=== PATIENT | female | born 1950 | race American Indian/Alaskan Native ===

== ENCOUNTER 2019-01-14 10:36 | Inpatient (IN) | payer MEDICARE ==
[2019-01-14 10:36] VITALS: BMI 31.4
[2019-01-14 11:16] VITALS: RESP 20
[2019-01-14] MEDS ORDERED: Sodium Chloride 0.9% 1,000 ML IV ONE (11:36)
--- NOTE | 2019-01-14 11:39 | C.PDOC ---
History Of Present Illness 68 y/o female pt presents to the ER c/o right extremity swelling. Pt reports she woke up with swelling and pain on her right leg with erythema. Pain is constant and worse with movement, pt also notes chills. Pt denies fever, chills, weakness, numbness and no other associated sx or complaints at this time. Time Seen by Provider: 01/14/19 10:57 Chief Complaint (Nursing): Lower Extremity Problem/Injury History Per: Patient History/Exam Limitations: no limitations Onset/Duration Of Symptoms: Hrs Current Symptoms Are (Timing): Still Present Severity: Moderate Past Medical History Reviewed: Historical Data, Nursing Documentation, Vital Signs Vital Signs: Last Vital Signs Temp 102.8 F H 01/14/19 11:15 Pulse 88 01/14/19 11:15 Resp 20 01/14/19 11:15 BP 189/95 H 01/14/19 11:15 Pulse Ox 99 01/14/19 11:15 - Medical History PMH: Back Problems, Hepatitis, HTN, Kidney Stones Surgical History: No Surg Hx - [facility] Procedures LEFT HEART CARDIAC CATH (11/25/13) LT HEART ANGIOCARDIOGRAM (11/25/13) VACCINATION NEC (11/25/13) Family History: States: Unknown Family Hx - Social History Hx Tobacco Use: No Hx Alcohol Use: No Hx Substance Use: No - Immunization History Hx Tetanus Toxoid Vaccination: No Hx Influenza Vaccination: No Hx Pneumococcal Vaccination: No Review Of Systems Except As Marked, All Systems Reviewed And Found Negative. Constitutional: Positive for: Chills Musculoskeletal: Positive for: Other (right extremity swelling and pain ) Physical Exam - Physical Exam Appears: Non-toxic, No Acute Distress Skin: Warm, Dry Head: Normacephalic Eye(s): bilateral: Normal Inspection Chest: Symmetrical Cardiovascular: Rhythm Regular Respiratory: Normal Breath Sounds, No Rales, No Rhonchi, No Wheezing Gastrointestinal/Abdominal: Soft, No Tenderness Back: No CVA Tenderness Extremity: Normal ROM (x4), Pedal Edema (b/l 2+; R>L), No Calf Tenderness, No Deformity, Swelling, Other (erythema along the magallanes of right leg; +induration ) Pulses: Left Dorsalis Pedis: Normal, Right Dorsalis Pedis: Normal Neurological/Psych: Oriented x3, Normal Speech, Normal Cognition, Normal Motor, Normal Sensation ED Course And Treatment - Laboratory Results Result Diagrams: 01/14/19 12:26 01/14/19 12:26 O2 Sat by Pulse Oximetry: 99 (RA) Pulse Ox Interpretation: Normal Medical Decision Making Medical Decision Making: plans: -- chem labs -- blood work -- chest XR -- IV fluids -- tylenol Admit pt to Dr. Engle Disposition Discussed With : Pilar Engle Doctor Will See Patient In The: Hospital Counseled Patient/Family Regarding: Diagnosis - Disposition Disposition: HOSPITALIZED Disposition Time: 14:15 Condition: STABLE - Clinical Impression Clinical Impression: Erysipelas of lower extremity, Cellulitis, leg - Scribe Statement The provider has reviewed the documentation as recorded by the Juvencio Shoemaker Do Provider Attestation: All medical record entries made by the Juvencio were at my direction and personally dictated by me. I have reviewed the chart and agree that the record accurately reflects my personal performance of the history, physical exam, medical decision making, and the department course for this patient. I have also personally directed, reviewed, and agree with the discharge instructions and disposition.
[2019-01-14] MEDS ORDERED: Sodium Chloride 0.9% 1,000 ML ONE ×2 (11:49→15:26)
[2019-01-14 12:03] LABS: VENOUS BLOOD GAS BASE EXCESS 6.6 mmol/L (0.0-2.0); VENOUS BLOOD GAS PCO2 47 mmHg (40-60); VENOUS BLOOD GAS PO2 19 mm/Hg (30-55); VENOUS BLOOD PH 7.44 (7.32-7.43)
[2019-01-14 12:33] LABS: BASO % 0.3 % (0.0-2.0); EOS # 0.1 K/uL (0.0-0.7); EOS % 1.7 % (0.0-4.0); HEMOGLOBIN 13.9 g/dL (11.0-16.0); LYMPH # 1.6 K/uL (1.0-4.3); LYMPH % 19.1 % (20.0-40.0); MEAN CELL VOLUME 89.5 fL (81.0-99.0); MEAN CORPUSCULAR HEMOGLOBIN 29.9 pg (27.0-31.0); MEAN CORPUSCULAR HGB CONC 33.4 g/dL (33.0-37.0); MEAN PLATELET VOLUME 9.7 fL (7.2-11.7); MONO # 0.5 K/uL (0.0-0.8); MONO % 6.2 % (0.0-10.0); NEUT # 6.2 K/uL (1.8-7.0); NEUT % 72.7 % (50.0-75.0); NRBC % 0.1 % (0.0-2.0); RBC 4.66 Mil/uL (3.80-5.20); RED CELL DISTRIBUTION WIDTH 15.6 % (11.5-14.5); WHITE BLOOD COUNT 8.5 K/uL (4.8-10.8)
[2019-01-14 12:44] LABS: ALB/GLOB RATIO 0.8 (1.0-2.1); ALBUMIN 3.5 g/dL (3.5-5.0); CALCIUM 9.2 mg/dl (8.6-10.4)
--- NOTE | 2019-01-14 15:07 | RAD ---
Chest x-ray single frontal view HISTORY: Shortness of breath. COMPARISON: 04/02/2016 Findings: Moderate venous congestion. Bilateral hilar prominence. Enlarged ectatic aorta. Cardiomegaly. Biapical pleural thickening. Degenerative changes in the spine and shoulders. Impression: Moderate venous congestion. Bilateral hilar prominence. Enlarged ectatic aorta. Cardiomegaly. Biapical pleural thickening.
[2019-01-14] MEDS: Sodium Chloride 0.9% 1,000 ML IV SCH ×2 (15:18→21:54)
[2019-01-14] MEDS: Piperacillin/Tazobact 3.375 GM in Sodium Chloride 100 ML IVPB SCH ×2 (15:18→21:55)
--- NOTE | 2019-01-14 17:01 | CP.PCM.HP ---
History of Present Illness - History of Present Illness History of Present Illness: 68 y/o female pt presents to the ER c/o right extremity swelling. Pt reports she woke up with swelling and pain on her right leg with erythema. Pain is constant and worse with movement, pt also notes chills. Pt denies fever, chills, we akness, numbness and no other associated sx or complaints at this time. Present on Admission - Present on Admission Any Indicators Present on Admission: No Review of Systems - Review of Systems All systems: reviewed and no additional remarkable complaints except (as mentioned in HPI) Past Patient History - Past Medical History & Family History Past Medical History?: Yes - Past Social History Smoking Status: Never Smoked - CARDIAC Hx Hypertension: Yes - RENAL Hx Kidney Stones: Yes - HEMATOLOGICAL/ONCOLOGICAL Hx Hepatitis C: Yes - MUSCULOSKELETAL/RHEUMATOLOGICAL Hx Falls: No - PSYCHIATRIC Hx Substance Use: No - SURGICAL HISTORY Hx Surgeries: Yes Hx Section: Yes - ANESTHESIA Hx Anesthesia: Yes Hx Anesthesia Reactions: No Hx Malignant Hyperthermia: No Meds Allergies/Adverse Reactions: Allergies Allergy/AdvReac Type Severity Reaction Status Date / Time No Known Allergies Allergy Verified 01/14/19 11:16 Physical Exam - Head Exam Head Exam: NORMAL INSPECTION - Eye Exam Eye Exam: Normal appearance - ENT Exam ENT Exam: Mucous Membranes Moist - Respiratory Exam Respiratory Exam: Clear to Auscultation Bilateral - Cardiovascular Exam Cardiovascular Exam: REGULAR RHYTHM, +S1, +S2 - GI/Abdominal Exam GI & Abdominal Exam: Normal Bowel Sounds, Soft - Extremities Exam Additional comments: LE Cellulitis - Neurological Exam Neurological exam: Alert, Normal Gait, Oriented x3 - Psychiatric Exam Psychiatric exam: Normal Affect, Normal Mood Results - Vital Signs Recent Vital Signs: Last Vital Signs Temp 99.6 F 01/14/19 16:09 Pulse 81 01/14/19 16:09 Resp 20 01/14/19 16:09 BP 127/71 01/14/19 16:09 Pulse Ox 97 01/14/19 16:09 - Labs Result Diagrams: 01/14/19 12:26 01/14/19 12:26 Labs: Laboratory Results - last 24 hr 01/14/19 01/14/19 01/14/19 12:00 12:26 12:26 WBC 8.5 RBC 4.66 Hgb 13.9 D Hct 41.7 MCV 89.5 D MCH 29.9 MCHC 33.4 RDW 15.6 H Plt Count 133 MPV 9.7 Neut % (Auto) 72.7 Lymph % (Auto) 19.1 L Andrew % (Auto) 6.2 Eos % (Auto) 1.7 Baso % (Auto) 0.3 Neut # (Auto) 6.2 Lymph # (Auto) 1.6 Andrew # (Auto) 0.5 Eos # (Auto) 0.1 Baso # (Auto) 0.0 D-Dimer, Quantitative 369 H pO2 19 L VBG pH 7.44 H VBG pCO2 47 VBG HCO3 28.3 VBG Total CO2 33.3 H VBG O2 Sat (Calc) 24.7 L VBG Base Excess 6.6 H VBG Potassium 3.3 L Sodium 146.0 Chloride 109.0 H Glucose 69 Lactate 1.5 Potassium Carbon Dioxide Anion Gap BUN Creatinine Est GFR ( Amer) Est GFR (Non-Af Amer) Random Glucose Calcium Total Bilirubin AST ALT Alkaline Phosphatase Total Protein Albumin Globulin Albumin/Globulin Ratio Venous Blood Potassium 3.3 L 01/14/19 12:26 WBC RBC Hgb Hct MCV MCH MCHC RDW Plt Count MPV Neut % (Auto) Lymph % (Auto) Andrew % (Auto) Eos % (Auto) Baso % (Auto) Neut # (Auto) Lymph # (Auto) Andrew # (Auto) Eos # (Auto) Baso # (Auto) D-Dimer, Quantitative pO2 VBG pH VBG pCO2 VBG HCO3 VBG Total CO2 VBG O2 Sat (Calc) VBG Base Excess VBG Potassium Sodium 137 Chloride 95 L Glucose Lactate Potassium 4.3 Carbon Dioxide 38 H Anion Gap 8 L BUN 31 H Creatinine 1.4 H Est GFR ( Amer) 45 Est GFR (Non-Af Amer) 37 Random Glucose 86 Calcium 9.2 Total Bilirubin 2.0 H AST 84 H ALT 52 Alkaline Phosphatase 246 H Total Protein 7.6 Albumin 3.5 D Globulin 4.1 H Albumin/Globulin Ratio 0.8 L Venous Blood Potassium Assessment & Plan (1) Cellulitis, leg Status: Acute (2) Nonspecific abnormal findings on radiological and examination of intrathoracic organs Status: Acute (3) CKD (chronic kidney disease) Status: Acute (4) HTN (hypertension) Status: Acute - Assessment and Plan (Free Text) Plan: Abx Lasix CT chest Clonidine Metoprolol Nephrology Consult DVT/GI prophalaxis
[2019-01-14] MEDS: Pantoprazole 40 mg EC Tab PO SCH (18:43)
[2019-01-14] MEDS: Enoxaparin 40 mg Syringe SC SCH (18:44)
[2019-01-15] MEDS: Piperacillin/Tazobact 3.375 GM in Sodium Chloride 100 ML IVPB SCH ×4 (02:40→20:15)
--- NOTE | 2019-01-15 09:16 | CT ---
CT chest HISTORY: Hilar fullness. COMPARISON: X-ray dated 01/14/2019 TECHNIQUE: Multiple contiguous axial images were performed through the chest without the use of intravenous contrast. Subsequently, sagittal and coronal reformatted images were obtained. This CT exam was performed using one or more of the following dose reduction techniques: Automated exposure control, adjustment of the mA and/or kV according to patient size, and/or use of iterative reconstruction technique. Findings: Right lung: Trachea thru central airways are patent. Mild atelectasis in the right middle and lower lobes. Left lung: Mild atelectasis in the lingula and lower lobes. No significant axillary adenopathy. Heterogeneity of the thyroid. Atherosclerotic calcification and plaque in the aorta. 1 centimeter precarinal and 9 millimeter right paratracheal lymph nodes. No significant hilar adenopathy; although evaluation is somewhat limited without contrast. No pleural or pericardial effusion. Heart size within normal limits. Cholelithiasis mild nonspecific fat stranding with a few shotty lymph nodes in the midline abdominal mesentery near the pancreas. Clinical correlation. Partially imaged right kidney may be diminutive/atrophic. Clinical correlation. Degenerative changes in the spine. Impression: Mild atelectasis in the lung chavez. Few shotty mediastinal lymph nodes. Cholelithiasis. Additional findings as above. A preliminary report was generated at 8:04 p.m. on 01/14/[address] Norman Rosario from [employer].
[2019-01-15] MEDS: Metoprolol Succinate 50 mg XL Tab PO SCH (09:24)
[2019-01-15] MEDS: Pantoprazole 40 mg EC Tab PO SCH (09:24)
[2019-01-15] MEDS: Enoxaparin 40 mg Syringe SC SCH (09:25)
[2019-01-15] MEDS: Sodium Chloride 0.9% 1,000 ML IV SCH ×2 (09:29→17:55)
--- NOTE | 2019-01-15 12:45 | CP.PCM.CON ---
Past Patient History - Past Medical History & Family History Past Medical History?: Yes - Past Social History Smoking Status: Never Smoked - CARDIAC Hx Hypertension: Yes - RENAL Hx Kidney Stones: Yes - HEMATOLOGICAL/ONCOLOGICAL Hx Hepatitis C: Yes - MUSCULOSKELETAL/RHEUMATOLOGICAL Hx Falls: No - PSYCHIATRIC Hx Substance Use: No - SURGICAL HISTORY Hx Surgeries: Yes Hx Section: Yes - ANESTHESIA Hx Anesthesia: Yes Hx Anesthesia Reactions: No Hx Malignant Hyperthermia: No Meds Allergies/Adverse Reactions: Allergies Allergy/AdvReac Type Severity Reaction Status Date / Time No Known Allergies Allergy Verified 01/14/19 11:16 - Medications Medications: Current Medications Aspirin (Aspirin Chewable) 81 mg PO DAILY [facility] Last Admin: 01/15/19 09:24 Dose: 81 mg Clonidine HCl (Catapres) 0.2 mg PO Q8 [facility] Last Admin: 01/15/19 05:42 Dose: 0.2 mg Enoxaparin Sodium (Lovenox) 40 mg SC DAILY [facility] Last Admin: 01/15/19 09:25 Dose: 40 mg Sodium Chloride (Sodium Chloride 0.9%) 1,000 mls @ 100 mls/hr IV .Q10H [facility] Last Admin: 01/15/19 09:29 Dose: 100 mls/hr Piperacillin Sod/Tazobactam (Sod 3.375 gm/ Sodium Chloride) 100 mls @ 200 mls/hr IVPB Q6H [facility]; Protocol Last Admin: 01/15/19 09:37 Dose: 200 mls/hr Metoprolol Succinate (Toprol Xl) 50 mg PO DAILY [facility] Last Admin: 01/15/19 09:24 Dose: 50 mg Pantoprazole Sodium (Protonix Ec Tab) 40 mg PO DAILY [facility] Last Admin: 01/15/19 09:24 Dose: 40 mg Spironolactone (Aldactone) 25 mg PO DAILY [facility] Last Admin: 01/15/19 09:24 Dose: 25 mg Physical Exam - Constitutional Appears: Well - Head Exam Head Exam: ATRAUMATIC, NORMAL INSPECTION, NORMOCEPHALIC - Eye Exam Eye Exam: EOMI, Normal appearance, PERRL Pupil Exam: NORMAL ACCOMODATION, PERRL - ENT Exam ENT Exam: Mucous Membranes Moist, Normal Exam - Neck Exam Neck exam: Positive for: Normal Inspection - Respiratory Exam Respiratory Exam: Decreased Breath Sounds - Cardiovascular Exam Cardiovascular Exam: +S1, +S2 - GI/Abdominal Exam GI & Abdominal Exam: Diminished Bowel Sounds, Soft - Rectal Exam Rectal Exam: Deferred Results - Vital Signs Recent Vital Signs: Last Vital Signs Temp 98.9 F 01/15/19 08:16 Pulse 69 01/15/19 08:16 Resp 20 01/15/19 08:16 BP 144/80 01/15/19 08:16 Pulse Ox 98 01/15/19 09:01 - Labs Result Diagrams: 01/15/19 14:07 01/15/19 14:07 Labs: Laboratory Results - last 24 hr 01/14/19 12:26 D-Dimer, Quantitative 369 H
--- NOTE | 2019-01-15 12:47 | CP.PCM.PN ---
Subjective - Date & Time of Evaluation Date of Evaluation: 01/15/19 Time of Evaluation: 08:00 - Subjective Subjective: clinically same Objective - Vital Signs/Intake and Output Vital Signs (last 24 hours): Temp Pulse Resp BP Pulse Ox 98.9 F 69 20 144/80 98 01/15/19 08:16 01/15/19 08:16 01/15/19 08:16 01/15/19 08:16 01/15/19 09:01 Intake and Output: 01/15/19 01/15/19 06:59 18:59 Intake Total 1000 Balance 1000 - Medications Medications: Current Medications Aspirin (Aspirin Chewable) 81 mg PO DAILY [facility] Last Admin: 01/15/19 09:24 Dose: 81 mg Clonidine HCl (Catapres) 0.2 mg PO Q8 [facility] Last Admin: 01/15/19 05:42 Dose: 0.2 mg Enoxaparin Sodium (Lovenox) 40 mg SC DAILY [facility] Last Admin: 01/15/19 09:25 Dose: 40 mg Sodium Chloride (Sodium Chloride 0.9%) 1,000 mls @ 100 mls/hr IV .Q10H [facility] Last Admin: 01/15/19 09:29 Dose: 100 mls/hr Piperacillin Sod/Tazobactam (Sod 3.375 gm/ Sodium Chloride) 100 mls @ 200 mls/hr IVPB Q6H [facility]; Protocol Last Admin: 01/15/19 09:37 Dose: 200 mls/hr Metoprolol Succinate (Toprol Xl) 50 mg PO DAILY [facility] Last Admin: 01/15/19 09:24 Dose: 50 mg Pantoprazole Sodium (Protonix Ec Tab) 40 mg PO DAILY [facility] Last Admin: 01/15/19 09:24 Dose: 40 mg Spironolactone (Aldactone) 25 mg PO DAILY [facility] Last Admin: 01/15/19 09:24 Dose: 25 mg - Labs Labs: 01/14/19 12:26 01/14/19 12:26 - Constitutional Appears: Well - Head Exam Head Exam: ATRAUMATIC, NORMAL INSPECTION, NORMOCEPHALIC - Eye Exam Eye Exam: EOMI, Normal appearance, PERRL Pupil Exam: NORMAL ACCOMODATION, PERRL - ENT Exam ENT Exam: Mucous Membranes Moist, Normal Exam - Neck Exam Neck Exam: Full ROM, Normal Inspection. absent: Lymphadenopathy - Respiratory Exam Respiratory Exam: Decreased Breath Sounds - Cardiovascular Exam Cardiovascular Exam: REGULAR RHYTHM, +S1, +S2 - GI/Abdominal Exam GI & Abdominal Exam: Soft, Diminished Bowel Sounds - Rectal Exam Rectal Exam: Deferred Assessment and Plan - Assessment and Plan (Free Text) Plan: ivf spironolactone id ocnsult iv zosyn yadira same as ordered
[2019-01-15 14:12] LABS: BASO % 0.3 % (0.0-2.0); EOS # 0.3 K/uL (0.0-0.7); EOS % 2.2 % (0.0-4.0); LYMPH # 1.8 K/uL (1.0-4.3); LYMPH % 15.7 % (20.0-40.0); MEAN CELL VOLUME 90.8 fL (81.0-99.0); MEAN CORPUSCULAR HEMOGLOBIN 30.4 pg (27.0-31.0); MEAN CORPUSCULAR HGB CONC 33.5 g/dL (33.0-37.0); MEAN PLATELET VOLUME 9.3 fL (7.2-11.7); MONO # 0.8 K/uL (0.0-0.8); MONO % 6.8 % (0.0-10.0); NEUT # 8.8 K/uL (1.8-7.0); RBC 3.76 Mil/uL (3.80-5.20); RED CELL DISTRIBUTION WIDTH 15.8 % (11.5-14.5); WHITE BLOOD COUNT 11.7 K/uL (4.8-10.8)
[2019-01-15 14:24] LABS: HEMOGLOBIN 11.4 g/dL (11.0-16.0)
[2019-01-15 14:51] LABS: ALB/GLOB RATIO 0.7 (1.0-2.1); ALBUMIN 2.6 g/dL (3.5-5.0); CALCIUM 8.5 mg/dl (8.6-10.4)
--- NOTE | 2019-01-15 16:29 | CP.PCM.CON ---
History of Present Illness - History of Present Illness History of Present Illness: 68 y/o female pt presents to the ER c/o right extremity swelling. Pt reports she woke up with swelling and pain on her right leg with erythema. Pain is constant and worse with movement, pt also notes chills. Started on empiric IV antiibiotics- creat clearance impaired switched to zyvox from [facility] Ultrasound exam ordered Review of Systems - Review of Systems All systems: reviewed and no additional remarkable complaints except - Constitutional Constitutional: As Per HPI. absent: Fever - EENT Eyes: absent: As Per HPI, Blind Spots, Blurred Vision, Change in Vision, Decreased Night Vision, Diplopia, Discharge, Dry Eye, Exophthalmos, Floaters, Irritation, Itchy Eyes, Loss of Peripheral Vision, Pain, Photophobia, Requires Corrective Lenses, Sees Flashes, Spots in Vision, Tunnel Vision, Other Visual Disturbances, Loss of Vision, Other Ears: absent: As Per HPI, Decreased Hearing, Ear Discharge, Ear Pain, Tinnitus, Abnormal Hearing, Disequilibrium, Dizziness, Other Nose/Mouth/Throat: absent: As Per HPI, Epistaxis, Nasal Congestion, Nasal Discharge, Nasal Obstruction, Nasal Trauma, Nose Pain, Post Nasal Drip, Sinus Pain, Sinus Pressure, Bleeding Gums, Change in Voice, Dental Pain, Dry Mouth, Dysphagia, Halitosis, Hoarsness, Lip Swelling, Mouth Lesions, Mouth Pain, Odynophagia, Sore Throat, Throat Swelling, Tongue Swelling, Facial Pain, Neck Pain, Neck Mass, Other - Breasts Breasts: absent: As Per HPI, Change in Shape, Mass, Pain, Nipple Discharge, Nipple Inversion, Skin Changes, Swelling, Other - Cardiovascular Cardiovascular: absent: As Per HPI, Acrocyanosis, Chest Pain, Chest Pain at Rest, Chest Pain with Activity, Claudication, Diaphoresis, Dyspnea, Dyspnea on Exertion, Edema, Irregular Heart Rhythm, Pain Radiating to Arm/Neck/Jaw, Leg Edema, Leg Ulcers, Lightheadedness, Orthopnea, Palpitations, Paroxysmal Nocturnal Dyspnea, Pedal Edema, Radiating Pain, Rapid Heart Rate, Slow Heart Rate, Syncope, Other - Respiratory Respiratory: absent: As Per HPI, Cough, Dyspnea, Hemoptysis, Dyspnea on Exert ion, Wheezing, Snoring, Stridor, Pain on Inspiration, Chest Congestion, Excessive Mucous Production, Change in Mucous Color, Pain with Coughing, Other - Gastrointestinal Gastrointestinal: absent: As Per HPI, Abdominal Pain, Belching, Bloating, Change in Bowel Habits, Change in Stool Character, Coffee Ground Emesis, Constipation, Cramping, Diarrhea, Dyspepsia, Dysphagia, Early Satiety, Excessive Flatus, Fecal Incontinence, Heartburn, Hematemesis, Hematochezia, Loose Stools, Melena, Nausea, Odynophagia, Temesmus, Vomiting, Other - Genitourinary Genitourinary: absent: As Per HPI, Change in Urinary Stream, Difficulty U rinating, Dysuria, Flank Pain, Hematuria, Pyuria, Nocturia, Urinary Incontinence, Urinary Frequency, Urinary Hesitance, Urinary Urgency, Voiding Freq/Small Amts, Freq UTI, Hx Renal/Bladder Calculi, Hx /Renal Surgery, Bladder Distension, Other - Reproductive: Female Reproductive:Female: absent: As Per HPI, Amenorrhea, Amenorrhea/ Control, Currently Menstual, Cycle <21 Days, Cycle >35 Days, Cycle Variable, Menses 1-7 Days, Menses >/= 8 Days, Menses Variable, Cycle > 4 Weeks Between, No Menses for 6 Months, Heavy Menses, Light Menses, Normal Menses, Spotting Between Cycles, S/P Hysterectomy, Menopausal, Post Menopausal, Premenarche, Abnormal Vaginal Bleeding, Dysmenorrhea, Dyspareunia, Genital Lesions, Genital Pruritis, Pelvic Pain, Prolapse Symptoms, Sexual Dysfunction, Vaginal Discharge, Vaginal Dryness, Vaginal Odor, Vaginal Pruritis, Other - Menstruation Menstruation: absent: As Per HPI, Amenorrhea, Amenorrhea/ Control, Currently Menstual, Cycle <21 Days, Cycle >35 Days, Cycle Variable, Menses 1-7 Days, Menses >/= 8 Days, Menses Variable, Cycle > 4 Weeks Between, No Menses for 6 Months, Heavy Menses, Light Menses, Normal Menses, Spotting Between Cycles, S/P Hysterectomy, Menopausal, Post Menopausal, Premenarche, Abnormal Vaginal Bleeding, Dysmenorrhea, Other - Musculoskeletal Musculoskeletal: As Per HPI, Myalgias - Integumentary Integumentary: As Per HPI, Skin Pain, Swelling, Wounds - Neurological Neurological: absent: As Per HPI, Abnormal Gait, Abnormal Hearing, Abnormal Movements, Abnormal Speech, Behavioral Changes, Burning Sensations, Confusion, Convulsions, Disequilibrium, Dizziness, Numbness, Focal Weakness, Frequent Falls, Headaches, Lack of Coordination, Loss of Vision, Memory Loss, Paresthesias, Radicular Pain, Restless Legs, Sensory Deficit, Syncope, Tingling, Tremor, Vertigo, Weakness, Other Visual Disturbances, Other - Psychiatric Psychiatric: absent: As Per HPI, Abnormal Sleep Pattern, Anhedonia, Anxiety, A uditory Hallucinations, Behavioral Changes, Change in Appetite, Change in Libido, Confusion, Depression, Difficulty Concentrating, Hallucinations, Homicidal Ideation, Hopelessness, Irritability, Memory Loss, Mood Swings, Panic Attacks, Paranoia, Suicidal Ideation, Visual Hallucinations, Tactile Godwin ucinations, Other - Endocrine Endocrine: absent: As Per HPI, Change in Body Appearance, Change in Libido, Cold Intolorance, Deepening of Voice, Excessive Sweating, Fatigue, Flushing, Heat Intolorance, Increase in Ring/Shoe/Hat Size, Palpitations, Polydipsia, Po lyphagia, Polyuria, Other Past Patient History - Past Medical History & Family History Past Medical History?: Yes - Past Social History Smoking Status: Never Smoked - CARDIAC Hx Hypertension: Yes - RENAL Hx Kidney Stones: Yes - HEMATOLOGICAL/ONCOLOGICAL Hx Hepatitis C: Yes - MUSCULOSKELETAL/RHEUMATOLOGICAL Hx Falls: No - PSYCHIATRIC Hx Substance Use: No - SURGICAL HISTORY Hx Surgeries: Yes Hx Section: Yes - ANESTHESIA Hx Anesthesia: Yes Hx Anesthesia Reactions: No Hx Malignant Hyperthermia: No Meds Allergies/Adverse Reactions: Allergies Allergy/AdvReac Type Severity Reaction Status Date / Time No Known Allergies Allergy Verified 01/14/19 11:16 - Medications Medications: Current Medications Aspirin (Aspirin Chewable) 81 mg PO DAILY [facility] Last Admin: 01/15/19 09:24 Dose: 81 mg Clonidine HCl (Catapres) 0.2 mg PO Q8 [facility] Last Admin: 01/15/19 13:57 Dose: 0.2 mg Enoxaparin Sodium (Lovenox) 40 mg SC DAILY [facility] Last Admin: 01/15/19 09:25 Dose: 40 mg Sodium Chloride (Sodium Chloride 0.9%) 1,000 mls @ 100 mls/hr IV .Q10H [facility]PL[facility] Last Admin: 01/15/19 09:29 Dose: 100 mls/hr Piperacillin Sod/Tazobactam (Sod 3.375 gm/ Sodium Chloride) 100 mls @ 200 mls/hr IVPB Q6H [facility]PL[facility]; Protocol Last Admin: 01/15/19 13:57 Dose: 200 mls/hr Influenza Virus Vaccine (Flucelvax Quad [id number] Syr) 60 mcg IM .ONCE ONE Stop: 01/18/19 10:01 Metoprolol Succinate (Toprol Xl) 50 mg PO DAILY [facility] Last Admin: 01/15/19 09:24 Dose: 50 mg Pantoprazole Sodium (Protonix Ec Tab) 40 mg PO DAILY [facility] Last Admin: 01/15/19 09:24 Dose: 40 mg Pneumococcal Polyvalent Vaccine (Pneumovax 23 Vaccine) 0.5 ml IM .ONCE ONE Stop: 01/18/19 10:01 Spironolactone (Aldactone) 25 mg PO DAILY [facility] Last Admin: 01/15/19 09:24 Dose: 25 mg Physical Exam - Constitutional Appears: Non-toxic, No Acute Distress, Chronically Ill - Head Exam Head Exam: ATRAUMATIC, NORMAL INSPECTION, NORMOCEPHALIC - Eye Exam Eye Exam: Normal appearance, Scleral icterus. absent: Nystagmus - ENT Exam ENT Exam: Mucous Membranes Dry, Normal External Ear Exam, Normal Oropharynx - Neck Exam Neck exam: Negative for: Lymphadenopathy - Respiratory Exam Respiratory Exam: Decreased Breath Sounds, Clear to Auscultation Bilateral - Cardiovascular Exam Cardiovascular Exam: REGULAR RHYTHM, +S1, +S2 - GI/Abdominal Exam GI & Abdominal Exam: Diminished Bowel Sounds, Soft. absent: Tenderness - Rectal Exam Rectal Exam: Deferred - Exam Exam: NORMAL INSPECTION - Extremities Exam Extremities exam: Positive for: calf tenderness, pedal edema, tenderness, pedal pulses present. Negative for: normal capillary refill, normal inspection Additional comments: massive swelling right leg below knee pulses diminished no pus no crepitation - Back Exam Back exam: absent: CVA tenderness (L), CVA tenderness (R), paraspinal tenderness - Neurological Exam Neurological exam: Alert, CN II-XII Intact, Oriented x3, Reflexes Normal - Psychiatric Exam Psychiatric exam: Normal Mood - Skin Skin Exam: Dry, Erythema Results - Vital Signs Recent Vital Signs: Last Vital Signs Temp 98.9 F 01/15/19 08:16 Pulse 69 01/15/19 08:16 Resp 20 01/15/19 08:16 BP 144/80 03/17/19 08:16 Pulse Ox 98 01/15/19 15:49 - Labs Result Diagrams: 01/15/19 14:07 01/15/19 14:07 Labs: Laboratory Results - last 24 hr 01/15/19 01/15/19 14:07 14:07 WBC 11.7 H RBC 3.76 L Hgb 11.4 D Hct 34.1 MCV 90.8 MCH 30.4 MCHC 33.5 RDW 15.8 H Plt Count 100 L D MPV 9.3 Neut % (Auto) 75.0 Lymph % (Auto) 15.7 L Hitchcock % (Auto) 6.8 Eos % (Auto) 2.2 Baso % (Auto) 0.3 Neut # (Auto) 8.8 H Lymph # (Auto) 1.8 Hitchcock # (Auto) 0.8 Eos # (Auto) 0.3 Baso # (Auto) 0.0 Sodium 137 Potassium 4.2 Chloride 103 Carbon Dioxide 31 H Anion Gap 7 L BUN 28 H Creatinine 1.8 H Est GFR ( Amer) 34 Est GFR (Non-Af Amer) 28 Random Glucose 88 Calcium 8.5 L Total Bilirubin 3.0 H AST 59 H D ALT 39 Alkaline Phosphatase 142 H D Total Protein 6.1 L Albumin 2.6 L D Globulin 3.5 Albumin/Globulin Ratio 0.7 L Assessment & Plan (1) Cellulitis, leg Status: Acute (2) Erysipelas of lower extremity Status: Acute (3) CKD (chronic kidney disease) Status: Acute (4) HTN (hypertension) Status: Acute - Assessment and Plan (Free Text) Assessment: add zyvox for MRSA coverage check arterial doppled]rs and ultrasound to r/o abscess may need vascular eval' cont IV Zosyn for now check culturers discussed with Dr Anthony Harmon
[2019-01-15] MEDS: Linezolid 600 mg in D5W 300 ml 600 MG/300 ML BAG IVPB SCH (17:25)
--- NOTE | 2019-01-15 17:50 | CP.PCM.PN ---
Subjective - Date & Time of Evaluation Date of Evaluation: 01/15/19 Time of Evaluation: 17:50 Objective - Vital Signs/Intake and Output Vital Signs (last 24 hours): Temp Pulse Resp BP Pulse Ox 98.9 F 69 20 144/80 98 01/15/19 08:16 01/15/19 08:16 01/15/19 08:16 01/15/19 08:16 01/15/19 15:49 Intake and Output: 01/15/19 01/15/19 06:59 18:59 Intake Total 2200 Output Total 700 Balance 1500 - Medications Medications: Current Medications Aspirin (Aspirin Chewable) 81 mg PO DAILY [facility] Last Admin: 01/15/19 09:24 Dose: 81 mg Clonidine HCl (Catapres) 0.2 mg PO Q8 [facility] Last Admin: 01/15/19 13:57 Dose: 0.2 mg Enoxaparin Sodium (Lovenox) 40 mg SC DAILY [facility] Last Admin: 01/15/19 09:25 Dose: 40 mg Sodium Chloride (Sodium Chloride 0.9%) 1,000 mls @ 100 mls/hr IV .Q10H [facility] Last Admin: 01/15/19 09:29 Dose: 100 mls/hr Piperacillin Sod/Tazobactam (Sod 3.375 gm/ Sodium Chloride) 100 mls @ 200 mls/hr IVPB Q6H [facility]; Protocol Last Admin: 01/15/19 13:57 Dose: 200 mls/hr Linezolid (Zyvox 600mg/300ml D5w) 600 mg in 300 mls @ 200 mls/hr IVPB Q12H [facility]; Protocol Influenza Virus Vaccine (Flucelvax Quad 4654-4225 Syr) 60 mcg IM .ONCE ONE Stop: 01/18/19 10:01 Metoprolol Succinate (Toprol Xl) 50 mg PO DAILY [facility] Last Admin: 01/15/19 09:24 Dose: 50 mg Pantoprazole Sodium (Protonix Ec Tab) 40 mg PO DAILY [facility] Last Admin: 01/15/19 09:24 Dose: 40 mg Pneumococcal Polyvalent Vaccine (Pneumovax 23 Vaccine) 0.5 ml IM .ONCE ONE Stop: 01/18/19 10:01 Spironolactone (Aldactone) 25 mg PO DAILY [facility] Last Admin: 01/15/19 09:24 Dose: 25 mg - Labs Labs: 01/15/19 14:07 01/15/19 14:07 Assessment and Plan (1) Cellulitis, leg Status: Acute (2) Nonspecific abnormal findings on radiological and examination of intrathoracic organs Status: Acute (3) CKD (chronic kidney disease) Status: Acute (4) HTN (hypertension) Status: Acute
[2019-01-15] MEDS ORDERED: Aluminum Hydroxide/Magnesium Hydroxide Susp (30 mL) PO ONE (23:30)
[2019-01-16] MEDS: Piperacillin/Tazobact 3.375 GM in Sodium Chloride 100 ML IVPB SCH ×4 (02:43→20:35)
[2019-01-16] MEDS: Sodium Chloride 0.9% 1,000 ML IV SCH ×4 (04:46→23:45)
[2019-01-16] MEDS: Linezolid 600 mg in D5W 300 ml 600 MG/300 ML BAG IVPB SCH ×2 (05:15→18:12)
[2019-01-16] MEDS: Enoxaparin 40 mg Syringe SC SCH (09:34)
[2019-01-16] MEDS: Metoprolol Succinate 50 mg XL Tab PO SCH (09:34)
[2019-01-16] MEDS: Pantoprazole 40 mg EC Tab PO SCH (09:34)
--- NOTE | 2019-01-16 10:08 | VASCLAB ---
Date of service: 01/14/2019 PROCEDURE: Right Lower Extremity Venous Duplex Exam. HISTORY: DVT PRIORS: None. TECHNIQUE: Right common femoral, femoral, popliteal and posterior tibial, peroneal and great saphenous veins were evaluated. Flow was assessed with color Doppler, compressibility, assessment of phasic flow and augmentation response. Report prepared by JARAD Michelle FINDINGS: RIGHT: 1. Common Femoral Vein: 1.1. Compressibility - Fully compressible: Thrombus - None: Flow - Phasic: Augmentation -Normal: Reflux - None. 2. Femoral Vein: 2.1. Compressibility - Fully compressible: Thrombus - None: Flow - Phasic: Augmentation -Normal: Reflux - None. 3. Popliteal Vein: 3.1. Compressibility - Fully compressible: Thrombus - None: Flow - Phasic: Augmentation -Normal: Reflux - None. 4. Posterior Tibial Vein: 5. Peroneal Vein: 6. Great Saphenous Vein: 6.1. Compressibility - Fully compressible: Thrombus -None: Flow - Phasic: Augmentation - Normal: Reflux - None. OTHER FINDINGS: Normal venous flow noted in the LEFT common femoral vein. IMPRESSION: The right posterior tibial and peroneal veins could not be imaged due to severe calf swelling. No evidence of deep or superficial vein thrombosis for the remaining veins of the right lower extremity.
--- NOTE | 2019-01-16 11:24 | US ---
Limited right lower extremity soft tissue ultrasound HISTORY: Cellulitis. COMPARISON: None available. Technique: Real-time sonography was performed through the soft tissues of the right lower extremity. Findings: At the site of the palpable abnormality, there is marked reticulation and edema seen within the subcutaneous soft tissues within the anterior right lower extremity consistent with a prominent cellulitis. No discrete sonographic collection is visualized. Impression: At the site of the palpable abnormality, there is marked reticulation and edema seen within the subcutaneous soft tissues within the anterior right lower extremity consistent with a prominent cellulitis. No discrete sonographic collection is visualized.
--- NOTE | 2019-01-16 11:53 | CP.PCM.PN ---
Subjective - Date & Time of Evaluation Date of Evaluation: 01/16/19 Time of Evaluation: 11:00 - Subjective Subjective: seen on rounds orders written Objective - Vital Signs/Intake and Output Vital Signs (last 24 hours): Temp Pulse Resp BP Pulse Ox 97.8 F 69 20 151/83 H 99 01/16/19 07:00 01/16/19 07:00 01/16/19 07:00 01/16/19 07:00 01/16/19 07:00 Intake and Output: 01/16/19 01/16/19 06:59 18:59 Intake Total 2049 Balance 2049 - Medications Medications: Current Medications Aspirin (Aspirin Chewable) 81 mg PO DAILY [facility] Last Admin: 01/16/19 09:34 Dose: 81 mg Clonidine HCl (Catapres) 0.2 mg PO Q8 [facility] Last Admin: 01/16/19 05:14 Dose: 0.2 mg Enoxaparin Sodium (Lovenox) 40 mg SC DAILY [facility] Last Admin: 01/16/19 09:34 Dose: 40 mg Sodium Chloride (Sodium Chloride 0.9%) 1,000 mls @ 100 mls/hr IV .Q10H [facility] Last Admin: 01/16/19 04:46 Dose: Not Given Piperacillin Sod/Tazobactam (Sod 3.375 gm/ Sodium Chloride) 100 mls @ 200 mls/hr IVPB Q6H [facility]; Protocol Last Admin: 01/16/19 08:25 Dose: 200 mls/hr Linezolid (Zyvox 600mg/300ml D5w) 600 mg in 300 mls @ 200 mls/hr IVPB Q12H [facility]; Protocol Last Admin: 01/16/19 05:15 Dose: 200 mls/hr Influenza Virus Vaccine (Flucelvax Quad 6091-7236 Syr) 60 mcg IM .ONCE ONE Stop: 01/18/19 10:01 Metoprolol Succinate (Toprol Xl) 50 mg PO DAILY [facility] Last Admin: 01/16/19 09:34 Dose: 50 mg Pantoprazole Sodium (Protonix Ec Tab) 40 mg PO DAILY [facility] Last Admin: 01/16/19 09:34 Dose: 40 mg Pneumococcal Polyvalent Vaccine (Pneumovax 23 Vaccine) 0.5 ml IM .ONCE ONE Stop: 01/18/19 10:01 Spironolactone (Aldactone) 25 mg PO DAILY [facility] Last Admin: 01/16/19 09:33 Dose: 25 mg - Labs Labs: 01/15/19 14:07 01/15/19 14:07 - Constitutional Appears: Well - Head Exam Head Exam: ATRAUMATIC, NORMAL INSPECTION, NORMOCEPHALIC - Eye Exam Eye Exam: EOMI, Normal appearance, PERRL Pupil Exam: NORMAL ACCOMODATION, PERRL - ENT Exam ENT Exam: Mucous Membranes Moist, Normal Exam - Neck Exam Neck Exam: Full ROM, Normal Inspection. absent: Lymphadenopathy - Respiratory Exam Respiratory Exam: Clear to Ausculation Bilateral, NORMAL BREATHING PATTERN - Cardiovascular Exam Cardiovascular Exam: REGULAR RHYTHM, +S1, +S2. absent: Murmur - GI/Abdominal Exam GI & Abdominal Exam: Soft, Normal Bowel Sounds. absent: Tenderness - Rectal Exam Rectal Exam: Deferred - Exam Exam: NORMAL INSPECTION - Extremities Exam Extremities Exam: Full ROM, Normal Capillary Refill, Normal Inspection. absent: Joint Swelling, Pedal Edema - Back Exam Back Exam: NORMAL INSPECTION - Neurological Exam Neurological Exam: Alert, Awake, CN II-XII Intact, Normal Gait, Oriented x3 - Psychiatric Exam Psychiatric exam: Normal Affect, Normal Mood - Skin Skin Exam: Dry, Intact Additional comments: severe RLE cellulitis Assessment and Plan (1) Cellulitis, leg Status: Acute (2) Erysipelas of lower extremity Status: Acute (3) CKD (chronic kidney disease) Status: Acute (4) HTN (hypertension) Status: Acute - Assessment and Plan (Free Text) Assessment: cont IV rx
--- NOTE | 2019-01-16 18:11 | CP.PCM.PN ---
Subjective - Date & Time of Evaluation Date of Evaluation: 01/16/19 Time of Evaluation: 18:11 Objective - Vital Signs/Intake and Output Vital Signs (last 24 hours): Temp Pulse Resp BP Pulse Ox 97.7 F 81 20 160/82 H 100 01/16/19 16:00 01/16/19 16:00 01/16/19 16:00 01/16/19 16:00 01/16/19 16:00 Intake and Output: 01/16/19 01/16/19 06:59 18:59 Intake Total 2049 1099 Balance 2049 1100 - Medications Medications: Current Medications Aspirin (Aspirin Chewable) 81 mg PO DAILY [facility] Last Admin: 01/16/19 09:34 Dose: 81 mg Clonidine HCl (Catapres) 0.2 mg PO Q8 [facility] Last Admin: 01/16/19 13:20 Dose: 0.2 mg Enoxaparin Sodium (Lovenox) 40 mg SC DAILY [facility] Last Admin: 01/16/19 09:34 Dose: 40 mg Sodium Chloride (Sodium Chloride 0.9%) 1,000 mls @ 100 mls/hr IV .Q10H [facility] Last Admin: 01/16/19 13:16 Dose: Not Given Piperacillin Sod/Tazobactam (Sod 3.375 gm/ Sodium Chloride) 100 mls @ 200 mls/hr IVPB Q6H [facility]; Protocol Last Admin: 01/16/19 14:00 Dose: 200 mls/hr Linezolid (Zyvox 600mg/300ml D5w) 600 mg in 300 mls @ 200 mls/hr IVPB Q12H [facility]; Protocol Last Admin: 01/16/19 05:15 Dose: 200 mls/hr Influenza Virus Vaccine (Flucelvax Quad 6495-9762 Syr) 60 mcg IM .ONCE ONE Stop: 01/18/19 10:01 Metoprolol Succinate (Toprol Xl) 50 mg PO DAILY [facility] Last Admin: 01/16/19 09:34 Dose: 50 mg Pantoprazole Sodium (Protonix Ec Tab) 40 mg PO DAILY [facility] Last Admin: 01/16/19 09:34 Dose: 40 mg Pneumococcal Polyvalent Vaccine (Pneumovax 23 Vaccine) 0.5 ml IM .ONCE ONE Stop: 01/18/19 10:01 Spironolactone (Aldactone) 25 mg PO DAILY [facility] Last Admin: 01/16/19 09:33 Dose: 25 mg - Labs Labs: 01/15/19 14:07 01/15/19 14:07 Assessment and Plan (1) Cellulitis, leg Status: Acute (2) Nonspecific abnormal findings on radiological and examination of intrathoracic organs Status: Acute (3) CKD (chronic kidney disease) Status: Acute (4) HTN (hypertension) Status: Acute
--- NOTE | 2019-01-16 20:00 | CP.PCM.PN ---
Subjective - Date & Time of Evaluation Date of Evaluation: 01/16/19 Time of Evaluation: 07:45 - Subjective Subjective: clinically same Objective - Vital Signs/Intake and Output Vital Signs (last 24 hours): Temp Pulse Resp BP Pulse Ox 97.7 F 81 20 160/82 H 100 01/16/19 16:00 01/16/19 16:00 01/16/19 16:00 01/16/19 16:00 01/16/19 16:00 Intake and Output: 01/16/19 01/17/19 18:59 06:59 Intake Total 1100 Balance 1100 - Medications Medications: Current Medications Aspirin (Aspirin Chewable) 81 mg PO DAILY [facility] Last Admin: 01/16/19 09:34 Dose: 81 mg Clonidine HCl (Catapres) 0.2 mg PO Q8 [facility] Last Admin: 01/16/19 13:20 Dose: 0.2 mg Enoxaparin Sodium (Lovenox) 40 mg SC DAILY [facility] Last Admin: 01/16/19 09:34 Dose: 40 mg Sodium Chloride (Sodium Chloride 0.9%) 1,000 mls @ 100 mls/hr IV .Q10H [facility] Last Admin: 01/16/19 18:12 Dose: 100 mls/hr Piperacillin Sod/Tazobactam (Sod 3.375 gm/ Sodium Chloride) 100 mls @ 200 mls/hr IVPB Q6H [facility]; Protocol Last Admin: 01/16/19 14:00 Dose: 200 mls/hr Linezolid (Zyvox 600mg/300ml D5w) 600 mg in 300 mls @ 200 mls/hr IVPB Q12H [facility]; Protocol Last Admin: 01/16/19 18:12 Dose: 200 mls/hr Influenza Virus Vaccine (Flucelvax Quad 9091-2295 Syr) 60 mcg IM .ONCE ONE Stop: 01/18/19 10:01 Metoprolol Succinate (Toprol Xl) 50 mg PO DAILY [facility] Last Admin: 01/16/19 09:34 Dose: 50 mg Pantoprazole Sodium (Protonix Ec Tab) 40 mg PO DAILY [facility] Last Admin: 01/16/19 09:34 Dose: 40 mg Pneumococcal Polyvalent Vaccine (Pneumovax 23 Vaccine) 0.5 ml IM .ONCE ONE Stop: 01/18/19 10:01 Spironolactone (Aldactone) 25 mg PO DAILY [facility] Last Admin: 01/16/19 09:33 Dose: 25 mg - Labs Labs: 01/15/19 14:07 01/15/19 14:07 - Constitutional Appears: Well - Head Exam Head Exam: ATRAUMATIC, NORMAL INSPECTION, NORMOCEPHALIC - Eye Exam Eye Exam: EOMI, Normal appearance, PERRL Pupil Exam: NORMAL ACCOMODATION, PERRL - ENT Exam ENT Exam: Mucous Membranes Moist, Normal Exam - Neck Exam Neck Exam: Full ROM, Normal Inspection. absent: Lymphadenopathy - Respiratory Exam Respiratory Exam: Decreased Breath Sounds - Cardiovascular Exam Cardiovascular Exam: REGULAR RHYTHM, +S1, +S2 - GI/Abdominal Exam GI & Abdominal Exam: Soft, Diminished Bowel Sounds - Rectal Exam Rectal Exam: Deferred
[2019-01-17] MEDS: Linezolid 600 mg in D5W 300 ml 600 MG/300 ML BAG IVPB SCH ×2 (04:30→18:13)
[2019-01-17 07:52] LABS: BASO % 0.3 % (0.0-2.0); EOS # 0.2 K/uL (0.0-0.7); HEMOGLOBIN 11.4 g/dL (11.0-16.0); LYMPH # 1.6 K/uL (1.0-4.3); LYMPH % 19.7 % (20.0-40.0); MEAN CELL VOLUME 90.4 fL (81.0-99.0); MEAN CORPUSCULAR HEMOGLOBIN 30.5 pg (27.0-31.0); MEAN CORPUSCULAR HGB CONC 33.7 g/dL (33.0-37.0); MONO # 0.6 K/uL (0.0-0.8); MONO % 7.4 % (0.0-10.0); NEUT # 5.5 K/uL (1.8-7.0); NEUT % 69.6 % (50.0-75.0); RBC 3.75 Mil/uL (3.80-5.20); RED CELL DISTRIBUTION WIDTH 15.6 % (11.5-14.5)
[2019-01-17 08:27] LABS: ALB/GLOB RATIO 0.7 (1.0-2.1); ALBUMIN 2.4 g/dL (3.5-5.0); CALCIUM 8.6 mg/dl (8.6-10.4)
[2019-01-17] MEDS: Metoprolol Succinate 50 mg XL Tab PO SCH (10:25)
[2019-01-17] MEDS: Enoxaparin 40 mg Syringe SC SCH (10:26)
[2019-01-17] MEDS: Pantoprazole 40 mg EC Tab PO SCH (10:26)
--- NOTE | 2019-01-17 12:10 | CP.PCM.PN ---
Subjective - Date & Time of Evaluation Date of Evaluation: 01/17/19 Time of Evaluation: 09:00 - Subjective Subjective: examined at bedside chart reviewed orders signed less pain less swelling less redness Objective - Vital Signs/Intake and Output Vital Signs (last 24 hours): Temp Pulse Resp BP Pulse Ox 98.1 F 86 20 166/92 H 96 01/17/19 07:00 01/17/19 07:00 01/17/19 07:00 01/17/19 07:00 01/17/19 07:00 Intake and Output: 01/17/19 01/17/19 06:59 18:59 Intake Total 2350 Balance 2350 - Medications Medications: Current Medications Aspirin (Aspirin Chewable) 81 mg PO DAILY [facility] Last Admin: 01/17/19 10:25 Dose: 81 mg Clonidine HCl (Catapres) 0.2 mg PO Q8 [facility] Last Admin: 01/17/19 05:15 Dose: 0.2 mg Enoxaparin Sodium (Lovenox) 40 mg SC DAILY [facility] Last Admin: 01/17/19 10:26 Dose: 40 mg Linezolid (Zyvox 600mg/300ml D5w) 600 mg in 300 mls @ 200 mls/hr IVPB Q12H [facility]; Protocol Last Admin: 01/17/19 04:30 Dose: 200 mls/hr Influenza Virus Vaccine (Flucelvax Quad 2037-3040 Syr) 60 mcg IM .ONCE ONE Stop: 01/18/19 10:01 Metoprolol Succinate (Toprol Xl) 50 mg PO DAILY [facility] Last Admin: 01/17/19 10:25 Dose: 50 mg Pantoprazole Sodium (Protonix Ec Tab) 40 mg PO DAILY [facility] Last Admin: 01/17/19 10:26 Dose: 40 mg Pneumococcal Polyvalent Vaccine (Pneumovax 23 Vaccine) 0.5 ml IM .ONCE ONE Stop: 01/18/19 10:01 Spironolactone (Aldactone) 25 mg PO DAILY [facility] Last Admin: 01/17/19 10:26 Dose: 25 mg - Labs Labs: 01/17/19 07:46 01/17/19 07:46 - Constitutional Appears: Well, No Acute Distress, Chronically Ill - Head Exam Head Exam: ATRAUMATIC, NORMAL INSPECTION, NORMOCEPHALIC - Eye Exam Eye Exam: EOMI, Normal appearance, PERRL Pupil Exam: NORMAL ACCOMODATION, PERRL - ENT Exam ENT Exam: Mucous Membranes Moist, Normal Exam - Neck Exam Neck Exam: Full ROM, Normal Inspection. absent: Lymphadenopathy - Respiratory Exam Respiratory Exam: Clear to Ausculation Bilateral, NORMAL BREATHING PATTERN - Cardiovascular Exam Cardiovascular Exam: REGULAR RHYTHM, +S1, +S2. absent: Murmur - GI/Abdominal Exam GI & Abdominal Exam: Soft, Normal Bowel Sounds. absent: Tenderness - Rectal Exam Rectal Exam: Deferred - Exam Exam: NORMAL INSPECTION - Extremities Exam Extremities Exam: Full ROM, Normal Capillary Refill, Normal Inspection. absent: Joint Swelling, Pedal Edema - Back Exam Back Exam: NORMAL INSPECTION - Neurological Exam Neurological Exam: Alert, Awake, CN II-XII Intact, Normal Gait, Oriented x3 - Psychiatric Exam Psychiatric exam: Normal Affect, Normal Mood - Skin Skin Exam: Dry, Intact, Normal Color, Warm Additional comments: redness and swelling right anterior leg Assessment and Plan (1) Cellulitis, leg Status: Acute (2) Erysipelas of lower extremity Status: Acute (3) CKD (chronic kidney disease) Status: Acute (4) HTN (hypertension) Status: Acute - Assessment and Plan (Free Text) Assessment: severe cellulitis right leg- improving on Zyvox no drainable abscess cont rx
--- NOTE | 2019-01-17 18:00 | CP.PCM.PN ---
Subjective - Date & Time of Evaluation Date of Evaluation: 01/17/19 Time of Evaluation: 18:00 Objective - Vital Signs/Intake and Output Vital Signs (last 24 hours): Temp Pulse Resp BP Pulse Ox 98.0 F 77 20 151/88 H 100 01/17/19 16:00 01/17/19 16:00 01/17/19 16:00 01/17/19 16:00 01/17/19 16:00 Intake and Output: 01/17/19 01/17/19 06:59 18:59 Intake Total 2350 780 Balance 2350 780 - Medications Medications: Current Medications Aspirin (Aspirin Chewable) 81 mg PO DAILY [facility] Last Admin: 01/17/19 10:25 Dose: 81 mg Clonidine HCl (Catapres) 0.2 mg PO Q8 [facility] Last Admin: 01/17/19 13:56 Dose: 0.2 mg Enoxaparin Sodium (Lovenox) 30 mg SC DAILY [facility] Linezolid (Zyvox 600mg/300ml D5w) 600 mg in 300 mls @ 200 mls/hr IVPB Q12H [facility]; Protocol Last Admin: 01/17/19 04:30 Dose: 200 mls/hr Influenza Virus Vaccine (Flucelvax Quad 6340-5991 Syr) 60 mcg IM .ONCE ONE Stop: 01/18/19 10:01 Metoprolol Succinate (Toprol Xl) 50 mg PO DAILY [facility] Last Admin: 01/17/19 10:25 Dose: 50 mg Pantoprazole Sodium (Protonix Ec Tab) 40 mg PO DAILY [facility] Last Admin: 01/17/19 10:26 Dose: 40 mg Pneumococcal Polyvalent Vaccine (Pneumovax 23 Vaccine) 0.5 ml IM .ONCE ONE Stop: 01/18/19 10:01 Spironolactone (Aldactone) 25 mg PO DAILY [facility] Last Admin: 01/17/19 10:26 Dose: 25 mg - Labs Labs: 01/17/19 07:46 01/17/19 07:46 Assessment and Plan (1) Cellulitis, leg Status: Acute (2) Nonspecific abnormal findings on radiological and examination of intrathoracic organs Status: Acute (3) CKD (chronic kidney disease) Status: Acute (4) HTN (hypertension) Status: Acute
--- NOTE | 2019-01-17 18:02 | CP.PCM.PN ---
Subjective - Date & Time of Evaluation Date of Evaluation: 01/17/19 Time of Evaluation: 07:30 - Subjective Subjective: clinically same Objective - Vital Signs/Intake and Output Vital Signs (last 24 hours): Temp Pulse Resp BP Pulse Ox 98.0 F 77 20 151/88 H 100 01/17/19 16:00 01/17/19 16:00 01/17/19 16:00 01/17/19 16:00 01/17/19 16:00 Intake and Output: 01/17/19 01/17/19 06:59 18:59 Intake Total 2350 780 Balance 2350 780 - Medications Medications: Current Medications Aspirin (Aspirin Chewable) 81 mg PO DAILY [facility] Last Admin: 01/17/19 10:25 Dose: 81 mg Clonidine HCl (Catapres) 0.2 mg PO Q8 [facility] Last Admin: 01/17/19 13:56 Dose: 0.2 mg Enoxaparin Sodium (Lovenox) 30 mg SC DAILY [facility] Linezolid (Zyvox 600mg/300ml D5w) 600 mg in 300 mls @ 200 mls/hr IVPB Q12H [facility]; Protocol Last Admin: 01/17/19 04:30 Dose: 200 mls/hr Influenza Virus Vaccine (Flucelvax Quad 7592-0550 Syr) 60 mcg IM .ONCE ONE Stop: 01/18/19 10:01 Metoprolol Succinate (Toprol Xl) 50 mg PO DAILY [facility] Last Admin: 01/17/19 10:25 Dose: 50 mg Pantoprazole Sodium (Protonix Ec Tab) 40 mg PO DAILY [facility] Last Admin: 01/17/19 10:26 Dose: 40 mg Pneumococcal Polyvalent Vaccine (Pneumovax 23 Vaccine) 0.5 ml IM .ONCE ONE Stop: 01/18/19 10:01 Spironolactone (Aldactone) 25 mg PO DAILY [facility] Last Admin: 01/17/19 10:26 Dose: 25 mg - Labs Labs: 01/17/19 07:46 01/17/19 07:46 - Constitutional Appears: Well - Head Exam Head Exam: ATRAUMATIC, NORMAL INSPECTION, NORMOCEPHALIC - Eye Exam Eye Exam: EOMI, Normal appearance, PERRL Pupil Exam: NORMAL ACCOMODATION, PERRL - ENT Exam ENT Exam: Mucous Membranes Moist, Normal Exam - Neck Exam Neck Exam: Full ROM, Normal Inspection. absent: Lymphadenopathy - Respiratory Exam Respiratory Exam: Decreased Breath Sounds - Cardiovascular Exam Cardiovascular Exam: REGULAR RHYTHM, +S1, +S2 - GI/Abdominal Exam GI & Abdominal Exam: Soft, Diminished Bowel Sounds - Rectal Exam Rectal Exam: Deferred
[2019-01-18] MEDS: Linezolid 600 mg in D5W 300 ml 600 MG/300 ML BAG IVPB SCH ×2 (04:57→17:17)
[2019-01-18] MEDS ORDERED: Influenza Vaccine 60 mcg/0.5 mL SYR (4YR UP) IM ONE (10:00)
[2019-01-18] MEDS ORDERED: Pneumococcal 23-Valent Vaccine IM ONE (10:00)
[2019-01-18] MEDS: Pantoprazole 40 mg EC Tab PO SCH (11:11)
[2019-01-18] MEDS: Enoxaparin 30 mg Syringe SC SCH (11:11)
[2019-01-18] MEDS: Metoprolol Succinate 50 mg XL Tab PO SCH (11:11)
--- NOTE | 2019-01-18 14:02 | CP.PCM.PN ---
Subjective - Date & Time of Evaluation Date of Evaluation: 01/18/19 Time of Evaluation: 14:02 Objective - Vital Signs/Intake and Output Vital Signs (last 24 hours): Temp Pulse Resp BP Pulse Ox 97.8 F 86 20 171/92 H 98 01/18/19 07:00 01/18/19 07:00 01/18/19 07:00 01/18/19 07:00 01/18/19 07:00 Intake and Output: 01/18/19 01/18/19 06:59 18:59 Intake Total 500 Output Total 600 Balance -100 - Medications Medications: Current Medications Aspirin (Aspirin Chewable) 81 mg PO DAILY [facility] Last Admin: 01/18/19 11:11 Dose: 81 mg Clonidine HCl (Catapres) 0.2 mg PO Q8 [facility] Last Admin: 01/18/19 05:00 Dose: 0.2 mg Enoxaparin Sodium (Lovenox) 30 mg SC DAILY [facility] Last Admin: 01/18/19 11:11 Dose: 30 mg Linezolid (Zyvox 600mg/300ml D5w) 600 mg in 300 mls @ 200 mls/hr IVPB Q12H [facility]; Protocol Last Admin: 01/18/19 04:57 Dose: 200 mls/hr Metoprolol Succinate (Toprol Xl) 50 mg PO DAILY [facility] Last Admin: 01/18/19 11:11 Dose: 50 mg Pantoprazole Sodium (Protonix Ec Tab) 40 mg PO DAILY [facility] Last Admin: 01/18/19 11:11 Dose: 40 mg Spironolactone (Aldactone) 25 mg PO DAILY [facility] Last Admin: 01/18/19 11:11 Dose: 25 mg - Labs Labs: 01/17/19 07:46 01/17/19 07:46 Assessment and Plan (1) Cellulitis, leg Status: Acute (2) Nonspecific abnormal findings on radiological and examination of intrathoracic organs Status: Acute (3) CKD (chronic kidney disease) Status: Acute (4) HTN (hypertension) Status: Acute
--- NOTE | 2019-01-18 17:54 | CP.PCM.PN ---
Subjective - Date & Time of Evaluation Date of Evaluation: 01/18/19 Time of Evaluation: 10:00 - Subjective Subjective: examined at bedside chart reviewed orders signed less pain less swelling less redness Objective - Vital Signs/Intake and Output Vital Signs (last 24 hours): Temp Pulse Resp BP Pulse Ox 98 F 82 20 148/89 98 01/18/19 15:56 01/18/19 15:56 01/18/19 15:56 01/18/19 15:56 01/18/19 15:56 Intake and Output: 01/18/19 01/18/19 06:59 18:59 Intake Total 500 480 Output Total 600 Balance -100 480 - Medications Medications: Current Medications Amlodipine Besylate (Norvasc) 10 [facility] PO [facility]ILY [facility] Aspirin (Aspirin Chewable) 81 mg PO DAILY [facility] Last Admin: 01/18/19 11:11 Dose: 81 mg Clonidine HCl (Catapres) 0.2 mg PO Q8 [facility] Last Admin: 01/18/19 14:02 Dose: 0.2 mg Enoxaparin Sodium (Lovenox) 30 mg SC DAILY [facility] Last Admin: 01/18/19 11:11 Dose: 30 mg Linezolid (Zyvox 600mg/300ml D5w) 600 mg in 300 mls @ 200 mls/hr IVPB Q12H [facility]; Protocol Last Admin: 01/18/19 17:17 Dose: 200 mls/hr Metoprolol Succinate (Toprol Xl) 50 mg PO DAILY [facility] Last Admin: 01/18/19 11:11 Dose: 50 mg Pantoprazole Sodium (Protonix Ec Tab) 40 mg PO DAILY [facility] Last Admin: 01/18/19 11:11 Dose: 40 mg Spironolactone (Aldactone) 25 mg PO DAILY [facility] Last Admin: 01/18/19 11:11 Dose: 25 mg - Labs Labs: 01/17/19 07:46 01/17/19 07:46 - Constitutional Appears: Well - Head Exam Head Exam: ATRAUMATIC, NORMAL INSPECTION, NORMOCEPHALIC - Eye Exam Eye Exam: EOMI, Normal appearance, PERRL Pupil Exam: NORMAL ACCOMODATION, PERRL - ENT Exam ENT Exam: Mucous Membranes Moist, Normal Exam - Neck Exam Neck Exam: Full ROM, Normal Inspection. absent: Lymphadenopathy - Respiratory Exam Respiratory Exam: Clear to Ausculation Bilateral, NORMAL BREATHING PATTERN - Cardiovascular Exam Cardiovascular Exam: REGULAR RHYTHM, +S1, +S2. absent: Murmur - GI/Abdominal Exam GI & Abdominal Exam: Soft, Normal Bowel Sounds. absent: Tenderness - Rectal Exam Rectal Exam: Deferred - Exam Exam: NORMAL INSPECTION - Extremities Exam Extremities Exam: Full ROM, Normal Capillary Refill, Normal Inspection. absent: Joint Swelling, Pedal Edema - Back Exam Back Exam: NORMAL INSPECTION - Neurological Exam Neurological Exam: Alert, Awake, CN II-XII Intact, Normal Gait, Oriented x3 - Psychiatric Exam Psychiatric exam: Normal Affect, Normal Mood - Skin Skin Exam: Dry, Erythema, Intact Additional comments: redness / swelling right leg Assessment and Plan (1) Cellulitis, leg Status: Acute (2) Erysipelas of lower extremity Status: Acute (3) CKD (chronic kidney disease) Status: Acute (4) HTN (hypertension) Status: Acute - Assessment and Plan (Free Text) Assessment: severe cellulitis right leg improving on Zyvox cont same empiric Rx with podiatry and vascular follow up
--- NOTE | 2019-01-18 19:08 | CP.PCM.PN ---
Subjective - Date & Time of Evaluation Date of Evaluation: 01/18/19 Time of Evaluation: 07:45 - Subjective Subjective: clinically same Objective - Vital Signs/Intake and Output Vital Signs (last 24 hours): Temp Pulse Resp BP Pulse Ox 98 F 82 20 148/89 98 01/18/19 15:56 01/18/19 15:56 01/18/19 15:56 01/18/19 15:56 01/18/19 15:56 Intake and Output: 01/18/19 01/19/19 18:59 06:59 Intake Total 480 Balance 480 - Medications Medications: Current Medications Amlodipine Besylate (Norvasc) 10 mg PO DAILY [facility] Aspirin (Aspirin Chewable) 81 mg PO DAILY [facility] Last Admin: 01/18/19 11:11 Dose: 81 mg Clonidine HCl (Catapres) 0.2 mg PO Q8 [facility] Last Admin: 01/18/19 14:02 Dose: 0.2 mg Enoxaparin Sodium (Lovenox) 30 mg SC DAILY [facility] Last Admin: 01/18/19 11:11 Dose: 30 mg Linezolid (Zyvox 600mg/300ml D5w) 600 mg in 300 mls @ 200 mls/hr IVPB Q12H [facility]; Protocol Last Admin: 01/18/19 17:17 Dose: 200 mls/hr Metoprolol Succinate (Toprol Xl) 50 mg PO DAILY [facility] Last Admin: 01/18/19 11:11 Dose: 50 mg Pantoprazole Sodium (Protonix Ec Tab) 40 mg PO DAILY [facility] Last Admin: 01/18/19 11:11 Dose: 40 mg Spironolactone (Aldactone) 25 mg PO DAILY [facility] Last Admin: 01/18/19 11:11 Dose: 25 mg - Labs Labs: 01/17/19 07:46 01/17/19 07:46 - Constitutional Appears: Well - Head Exam Head Exam: ATRAUMATIC, NORMAL INSPECTION, NORMOCEPHALIC - Eye Exam Eye Exam: EOMI, Normal appearance, PERRL Pupil Exam: NORMAL ACCOMODATION, PERRL - Neck Exam Neck Exam: Full ROM, Normal Inspection. absent: Lymphadenopathy - Respiratory Exam Respiratory Exam: Decreased Breath Sounds - Cardiovascular Exam Cardiovascular Exam: REGULAR RHYTHM, +S1, +S2 - GI/Abdominal Exam GI & Abdominal Exam: Soft, Diminished Bowel Sounds - Rectal Exam Rectal Exam: Deferred
[2019-01-19] MEDS: Linezolid 600 mg in D5W 300 ml 600 MG/300 ML BAG IVPB SCH ×2 (05:33→16:32)
[2019-01-19] MEDS: Pantoprazole 40 mg EC Tab PO SCH (09:23)
[2019-01-19] MEDS: Metoprolol Succinate 50 mg XL Tab PO SCH (09:23)
[2019-01-19] MEDS: Enoxaparin 30 mg Syringe SC SCH (09:24)
--- NOTE | 2019-01-19 18:04 | CP.PCM.PN ---
Subjective - Date & Time of Evaluation Date of Evaluation: 01/19/19 Time of Evaluation: 18:04 Objective - Vital Signs/Intake and Output Vital Signs (last 24 hours): Temp Pulse Resp BP Pulse Ox 98.3 F 72 20 148/81 100 01/19/19 16:00 01/19/19 16:00 01/19/19 16:00 01/19/19 16:00 01/19/19 16:00 Intake and Output: 01/19/19 01/19/19 06:59 18:59 Intake Total 500 Balance 500 - Medications Medications: Current Medications Amlodipine Besylate (Norvasc) 10 mg PO DAILY [facility] Last Admin: 01/19/19 09:24 Dose: 10 mg Aspirin (Aspirin Chewable) 81 mg PO DAILY [facility] Last Admin: 01/19/19 09:24 Dose: 81 mg Clonidine HCl (Catapres) 0.2 mg PO Q8 [facility] Last Admin: 01/19/19 13:05 Dose: 0.2 mg Enoxaparin Sodium (Lovenox) 30 mg SC DAILY [facility] Last Admin: 01/19/19 09:24 Dose: 30 mg Linezolid (Zyvox 600mg/300ml D5w) 600 mg in 300 mls @ 200 mls/hr IVPB Q12H [facility]; Protocol Last Admin: 01/19/19 16:32 Dose: 200 mls/hr Metoprolol Succinate (Toprol Xl) 50 mg PO DAILY [facility] Last Admin: 01/19/19 09:23 Dose: 50 mg Pantoprazole Sodium (Protonix Ec Tab) 40 mg PO DAILY [facility] Last Admin: 01/19/19 09:23 Dose: 40 mg Spironolactone (Aldactone) 25 mg PO DAILY [facility] Last Admin: 01/19/19 09:23 Dose: 25 mg - Labs Labs: 01/17/19 07:46 01/17/19 07:46 Assessment and Plan (1) Cellulitis, leg Status: Acute (2) Nonspecific abnormal findings on radiological and examination of intrathoracic organs Status: Acute (3) CKD (chronic kidney disease) Status: Acute (4) HTN (hypertension) Status: Acute
--- NOTE | 2019-01-19 18:51 | CP.PCM.PN ---
Subjective - Date & Time of Evaluation Date of Evaluation: 01/19/19 Time of Evaluation: 09:00 - Subjective Subjective: legs swollen redness less possible d/c on PO Zyvox consider vascular eval Objective - Vital Signs/Intake and Output Vital Signs (last 24 hours): Temp Pulse Resp BP Pulse Ox 98.3 F 72 20 148/81 100 01/19/19 16:00 01/19/19 16:00 01/19/19 16:00 01/19/19 16:00 01/19/19 16:00 Intake and Output: 01/19/19 01/19/19 06:59 18:59 Intake Total 500 Balance 500 - Medications Medications: Current Medications Amlodipine Besylate (Norvasc) 10 mg PO DAILY [facility] Last Admin: 01/19/19 09:24 Dose: 10 mg Aspirin (Aspirin Chewable) 81 mg PO DAILY [facility] Last Admin: 01/19/19 09:24 Dose: 81 mg Clonidine HCl (Catapres) 0.2 mg PO Q8 [facility] Last Admin: 01/19/19 13:05 Dose: 0.2 mg Enoxaparin Sodium (Lovenox) 30 mg SC DAILY [facility] Last Admin: 01/19/19 09:24 Dose: 30 mg Linezolid (Zyvox 600mg/300ml D5w) 600 mg in 300 mls @ 200 mls/hr IVPB Q12H [facility]; Protocol Last Admin: 01/19/19 16:32 Dose: 200 mls/hr Metoprolol Succinate (Toprol Xl) 50 mg PO DAILY [facility] Last Admin: 01/19/19 09:23 Dose: 50 mg Pantoprazole Sodium (Protonix Ec Tab) 40 mg PO DAILY [facility] Last Admin: 01/19/19 09:23 Dose: 40 mg Spironolactone (Aldactone) 25 mg PO DAILY [facility] Last Admin: 01/19/19 09:23 Dose: 25 mg - Labs Labs: 01/17/19 07:46 01/17/19 07:46 - Constitutional Appears: Well - Head Exam Head Exam: ATRAUMATIC, NORMAL INSPECTION, NORMOCEPHALIC - Eye Exam Eye Exam: EOMI, Normal appearance, PERRL Pupil Exam: NORMAL ACCOMODATION, PERRL - ENT Exam ENT Exam: Mucous Membranes Moist, Normal Exam - Neck Exam Neck Exam: Full ROM, Normal Inspection. absent: Lymphadenopathy - Respiratory Exam Respiratory Exam: Clear to Ausculation Bilateral, NORMAL BREATHING PATTERN - Cardiovascular Exam Cardiovascular Exam: REGULAR RHYTHM, +S1, +S2. absent: Murmur - GI/Abdominal Exam GI & Abdominal Exam: Soft, Normal Bowel Sounds. absent: Tenderness - Rectal Exam Rectal Exam: Deferred - Exam Exam: NORMAL INSPECTION - Extremities Exam Extremities Exam: Full ROM, Normal Capillary Refill, Normal Inspection. absent: Joint Swelling, Pedal Edema - Back Exam Back Exam: NORMAL INSPECTION - Neurological Exam Neurological Exam: Alert, Awake, CN II-XII Intact, Normal Gait, Oriented x3 - Psychiatric Exam Psychiatric exam: Normal Affect, Normal Mood - Skin Skin Exam: Dry, Erythema, Intact Assessment and Plan (1) Cellulitis, leg Status: Acute (2) Erysipelas of lower extremity Status: Acute (3) CKD (chronic kidney disease) Status: Acute (4) HTN (hypertension) Status: Acute - Assessment and Plan (Free Text) Assessment: consider d/c on PO Zyvox for 5 days
--- NOTE | 2019-01-19 18:57 | CP.PCM.PN ---
Subjective - Date & Time of Evaluation Date of Evaluation: 01/19/19 Time of Evaluation: 07:30 - Subjective Subjective: clinically same Objective - Vital Signs/Intake and Output Vital Signs (last 24 hours): Temp Pulse Resp BP Pulse Ox 98.3 F 72 20 148/81 100 01/19/19 16:00 01/19/19 16:00 01/19/19 16:00 01/19/19 16:00 01/19/19 16:00 Intake and Output: 01/19/19 01/19/19 06:59 18:59 Intake Total 500 Balance 500 - Medications Medications: Current Medications Amlodipine Besylate (Norvasc) 10 mg PO DAILY [facility] Last Admin: 01/19/19 09:24 Dose: 10 mg Aspirin (Aspirin Chewable) 81 mg PO DAILY [facility] Last Admin: 01/19/19 09:24 Dose: 81 mg Clonidine HCl (Catapres) 0.2 mg PO Q8 [facility] Last Admin: 01/19/19 13:05 Dose: 0.2 mg Enoxaparin Sodium (Lovenox) 30 mg SC DAILY [facility] Last Admin: 01/19/19 09:24 Dose: 30 mg Linezolid (Zyvox 600mg/300ml D5w) 600 mg in 300 mls @ 200 mls/hr IVPB Q12H [facility]; Protocol Last Admin: 01/19/19 16:32 Dose: 200 mls/hr Metoprolol Succinate (Toprol Xl) 50 mg PO DAILY [facility] Last Admin: 01/19/19 09:23 Dose: 50 mg Pantoprazole Sodium (Protonix Ec Tab) 40 mg PO DAILY [facility] Last Admin: 01/19/19 09:23 Dose: 40 mg Spironolactone (Aldactone) 25 mg PO DAILY [facility] Last Admin: 01/19/19 09:23 Dose: 25 mg - Labs Labs: 01/17/19 07:46 01/17/19 07:46 - Constitutional Appears: Well - Head Exam Head Exam: ATRAUMATIC, NORMAL INSPECTION, NORMOCEPHALIC - Eye Exam Eye Exam: EOMI, Normal appearance, PERRL Pupil Exam: NORMAL ACCOMODATION, PERRL - ENT Exam ENT Exam: Mucous Membranes Moist, Normal Exam - Neck Exam Neck Exam: Full ROM, Normal Inspection. absent: Lymphadenopathy - Respiratory Exam Respiratory Exam: Decreased Breath Sounds - Cardiovascular Exam Cardiovascular Exam: REGULAR RHYTHM, +S1, +S2 - GI/Abdominal Exam GI & Abdominal Exam: Soft, Diminished Bowel Sounds - Rectal Exam Rectal Exam: Deferred
[2019-01-20] MEDS: Linezolid 600 mg in D5W 300 ml 600 MG/300 ML BAG IVPB SCH (05:33)
[2019-01-20 08:31] VITALS: PULSE 87; TEMP 98.2; O2SAT 99
[2019-01-20] MEDS: Metoprolol Succinate 50 mg XL Tab PO SCH (09:20)
[2019-01-20] MEDS: Pantoprazole 40 mg EC Tab PO SCH (09:20)
[2019-01-20] MEDS: Enoxaparin 30 mg Syringe SC SCH (09:21)
[2019-01-20 10:57] VITALS: BP 140/70
--- NOTE | 2019-01-20 16:49 | CP.PCM.PN ---
Subjective - Date & Time of Evaluation Date of Evaluation: 01/20/19 Time of Evaluation: 10:00 - Subjective Subjective: alert and orientedx3, swelling and redness on right leg improving slowly, NAD. Objective - Vital Signs/Intake and Output Vital Signs (last 24 hours): Temp Pulse Resp BP Pulse Ox 98.2 F 87 20 140/70 99 01/20/19 08:00 01/20/19 08:00 01/20/19 08:00 01/20/19 10:56 01/20/19 08:00 - Labs Labs: 01/17/19 07:46 01/17/19 07:46 Assessment and Plan - Assessment and Plan (Free Text) Assessment: 68 YEAR old female admitted with redness and swelling to the right leg, seen and examined. Alert and ambulating well, right leg swelling and redness improved much better. Discussed with DR Hdz and DR Engle, plan to discharge home on po zyvox for 5 days. Advised to follow up with PMD in 1 week.
--- NOTE | 2019-01-20 17:49 | CP.PCM.DIS ---
Provider - Provider Date of Admission: 01/16/19 11:58 Attending physician: Pilar Engle MD Consults: 01/14/19 17:02 Physician Consult Routine Comment: Consulting Provider: Jose Hdz Consulting Physician: Jose Hdz Reason for Consult: LE Cellulitis 01/14/19 17:05 Physician Consult Routine Comment: Consulting Provider: Arnold Harmon Consulting Physician: Arnold Harmon Reason for Consult: CKD 01/19/19 10:39 Case Management Referral Routine Comment: approval, upon d/c home Physician Instructions: require 7-10 days zyvox PO 600mg bid per insurance Reason For Exam: Reason for Referral: Discharge Planning Diagnosis - Discharge Diagnosis (1) Cellulitis, leg Status: Acute (2) Nonspecific abnormal findings on radiological and examination of intrathoracic organs Status: Acute (3) CKD (chronic kidney disease) Status: Acute (4) HTN (hypertension) Status: Acute Hospital Course - Lab Results Lab Results: Micro Results 01/14/19 12:44 Blood Blood Culture - Final NO GROWTH AFTER 5 DAYS 01/14/19 12:44 Blood Gram Stain - Final TEST NOT PERFORMED 01/14/19 12:26 Blood Blood Culture - Final NO GROWTH AFTER 5 DAYS 01/14/19 12:26 Blood Gram Stain - Final TEST NOT PERFORMED Most Recent Lab Values WBC 8.0 K/uL (4.8-10.8) 01/17/19 07:46 RBC 3.75 Mil/uL (3.80-5.20) L 01/17/19 07:46 Hgb 11.4 g/dL (11.0-16.0) 01/17/19 07:46 Hct 33.9 % (34.0-47.0) L 01/17/19 07:46 MCV 90.4 fL (81.0-99.0) 01/17/19 07:46 MCH 30.5 pg (27.0-31.0) 01/17/19 07:46 MCHC 33.7 g/dL (33.0-37.0) 01/17/19 07:46 RDW 15.6 % (11.5-14.5) H 01/17/19 07:46 Plt Count 115 K/uL (130-400) L 01/17/19 07:46 MPV 10.0 fL (7.2-11.7) 01/17/19 07:46 Neut % (Auto) 69.6 % (50.0-75.0) 01/17/19 07:46 Lymph % (Auto) 19.7 % (20.0-40.0) L 01/17/19 07:46 Knox % (Auto) 7.4 % (0.0-10.0) 01/17/19 07:46 Eos % (Auto) 3.0 % (0.0-4.0) 01/17/19 07:46 Baso % (Auto) 0.3 % (0.0-2.0) 01/17/19 07:46 Neut # (Auto) 5.5 K/uL (1.8-7.0) 01/17/19 07:46 Lymph # (Auto) 1.6 K/uL (1.0-4.3) 01/17/19 07:46 Knox # (Auto) 0.6 K/uL (0.0-0.8) 01/17/19 07:46 Eos # (Auto) 0.2 K/uL (0.0-0.7) 01/17/19 07:46 Baso # (Auto) 0.0 K/uL (0.0-0.2) 01/17/19 07:46 Differential Comment 01/17/19 07:46 D-Dimer, Quantitative 369 ng/mlDDU (0-243) H 01/14/19 12:26 pO2 19 mm/Hg (30-55) L 01/14/19 12:00 VBG pH 7.44 (7.32-7.43) H 01/14/19 12:00 VBG pCO2 47 mmHg (40-60) 01/14/19 12:00 VBG HCO3 28.3 mmol/L 01/14/19 12:00 VBG Total CO2 33.3 mmol/L (22-28) H 01/14/19 12:00 VBG O2 Sat (Calc) 24.7 % (40-65) L 01/14/19 12:00 VBG Base Excess 6.6 mmol/L (0.0-2.0) H 01/14/19 12:00 VBG Potassium 3.3 mmol/L (3.6-5.2) L 01/14/19 12:00 Sodium 146.0 mmol/l (132-148) 01/14/19 12:00 Chloride 109.0 mmol/L (98-107) H 01/14/19 12:00 Glucose 69 mg/dl (65-105) 01/14/19 12:00 Lactate 1.5 mmol/L (0.7-2.1) 01/14/19 12:00 Sodium 137 mmol/L (132-148) 01/17/19 07:46 Potassium 4.8 mmol/L (3.6-5.2) 01/17/19 07:46 Chloride 107 mmol/L (98-107) 01/17/19 07:46 Carbon Dioxide 26 mmol/L (22-30) 01/17/19 07:46 Anion Gap 8 (10-20) L 01/17/19 07:46 BUN 18 mg/dL (7-17) H 01/17/19 07:46 Creatinine 1.6 mg/dL (0.7-1.2) H 01/17/19 07:46 Est GFR ( Amer) 39 01/17/19 07:46 Est GFR (Non-Af Amer) 32 01/17/19 07:46 Random Glucose 105 mg/dL (65-105) 01/17/19 07:46 Calcium 8.6 mg/dl (8.6-10.4) 01/17/19 07:46 Phosphorus 3.0 mg/dL (2.5-4.5) 01/16/19 06:15 Magnesium 2.1 mg/dL (1.6-2.3) 01/16/19 06:15 Total Bilirubin 2.0 mg/dL (0.2-1.3) H 01/17/19 07:46 AST 60 U/L (14-36) H 01/17/19 07:46 ALT 44 U/L (9-52) 01/17/19 07:46 Alkaline Phosphatase 139 U/L (38-126) H 01/17/19 07:46 Total Protein 5.9 g/dL (6.3-8.3) L 01/17/19 07:46 Albumin 2.4 g/dL (3.5-5.0) L 01/17/19 07:46 Globulin 3.6 gm/dL (2.2-3.9) 01/17/19 07:46 Albumin/Globulin Ratio 0.7 (1.0-2.1) L 01/17/19 07:46 Venous Blood Potassium 3.3 mmol/L (3.6-5.2) L 01/14/19 12:00 Ur Random Sodium 100 mmol/L 01/16/19 11:39 Discharge Exam - Head Exam Head Exam: ATRAUMATIC, NORMAL INSPECTION, NORMOCEPHALIC Discharge Plan - Discharge Medications Prescriptions: Linezolid [Zyvox] 600 mg PO BID #10 tab - Follow Up Plan Condition: STABLE Disposition: HOME/ ROUTINE Instructions: Cellulitis (Skin Infection), Adult (DC), Linezolid Additional Instructions: follow up in the office in 1 week zyvox 600mg po bid x5 days more as per DR Hdz continue with home medications. Referrals: Pilar Engle MD [Staff Provider] - Jose Hdz MD [Staff Provider] -
== END 2019-01-20 13:39 | disposition home or self-care (01) | DRG 603 ==
LOC: C.ER 10:36 → C.9E 14:12 → C.3T 15:34 → OBSVTOIN 01-16 11:58
PROVIDERS: ADMIT Internal Medicine Critical Care Medicine; ATTEND Internal Medicine Critical Care Medicine
DX: L03.115 Cellulitis of right lower limb (principal); A46 Erysipelas; I12.9 Hypertensive chronic kidney disease with stage 1 through stage 4 chronic kidney disease, or unspecified chronic kidney disease; N18.9 Chronic kidney disease, unspecified